=== PATIENT | female | born 1955 | race Caucasian/White ===

== ENCOUNTER 2021-11-12 08:00 | Outpatient (CLI) | payer BC ==
--- NOTE | 2021-11-12 17:18 | XRAY Report ---
PROCEDURE: Hand 3 View RT INDICATIONS: PAIN IN RIGHT HAND TECHNIQUE: 3 views of the hand(s) acquired. COMPARISON: None FINDINGS: Bones: There is mild diffuse interphalangeal joint space narrowing. Patient is status post resection of the inferior aspect of the first metacarpal, the trapezium, and part of the trapezoid bone. No rl picious bony lesions. No periarticular osteopenia or bony erosions. Soft tissues: Heterotopic ossification is present in the surgical bed. IMPRESSION: 1. Mild osteoarthritis and postsurgical change. No findings to suggest erosive arthritis. Reviewed by: Patricia Cordova MD on 11/12/2021 5:16 PM PDT Approved by: Patricia Cordova MD on 11/12/2021 5:16 PM PDT Station ID: [id number]
== END 2021-11-12 23:59 | disposition home or self-care (01) ==
LOC: DI.S 08:00
PROVIDERS: ATTEND Physician Assistant
DX: M19.041 Primary osteoarthritis, right hand (principal)